=== PATIENT | female | born 1980 | race African-American/Black ===

== ENCOUNTER 2017-09-14 14:01 | Emergency (ER) | payer SELFPAY ==
[~2017-09-14] VITALS: Ht 170.2 cm; Wt 68.0 kg
[2017-09-14] MEDS ORDERED: NO HOME MEDICATIONS (14:17)
[2017-09-14] MEDS ORDERED: IBUPROFEN 600MG TABLET PO ONE (16:30)
[2017-09-14 16:45] LABS: CLARITY URINE CLEAR (CLEAR); COLOR URINE YELLOW (YELLOW); GLUCOSE URINE NEGATIVE (NEGATIVE); KETONES URINE NEGATIVE (NEGATIVE); LEUKOCYTE ESTERASE URINE NEGATIVE (NEGATIVE); NITRITE URINE NEGATIVE (NEGATIVE); OCCULT BLOOD URINE NEGATIVE (NEGATIVE); PROTEIN URINE NEGATIVE (NEGATIVE); SPECIFIC GRAVITY URINE 1.007 (1.005-1.030); UROBILINOGEN URINE 0.2 E.U./dL (0.2-1.0)
[2017-09-14 17:07] VITALS: BP 127/78
== END 2017-09-14 18:37 | disposition home or self-care (01) ==
LOC: ER 14:01
DX: N83.202 Unspecified ovarian cyst, left side (principal); N85.8 Other specified noninflammatory disorders of uterus
CPT/HCPCS: 76830; 76856; 81003; 81025; 99285